=== PATIENT | male | born 1950 | race Caucasian/White ===

== ENCOUNTER 2017-06-13 15:44 | Inpatient (IN) | payer OTHER ==
--- NOTE | 2017-06-13 15:56 | EDPHY ---
H & P Time Seen by Provider: 06/13/17 15:53 HPI/ROS: CHIEF COMPLAINT: R/o urosepsis HISTORY OF PRESENT ILLNESS: This patient is a 66 y/o male with complex urologic history arriving at the request of Dr. Phillips for evaluation of urosepsis and admission for IV antibiotic treatment. Recent right ureteral stenting on 05/15/2017. This stent was removed on 05/17/2017. He developed severe sepsis after the stent was removed. Urinalysis revealed Pseudomonas, pansensitive. He was admitted to [facility] for five days and discharged home on meropenem by PICC line for 10 days and initially felt better. Saturday, he had finished his antibiotics and was cleared by Dr. Estrada, infectious disease specialist. He felt well over the weekend but Saturday, three days ago, he developed recurrent symptoms including worsening right flank pain, dysuria, diaphoresis and fever. Today, he is very chilled. He denies muscle aches but his hip and shoulder replacement surgical sites feel painful. Denies abdominal pain or back pain. No cough or cold symptoms, no nausea, vomiting, diarrhea. He did receive a flu shot Saturday, five days ago. He has taken Ibuprofen for fever reduction, last dose around 12: 00, four hours ago. Of note, the patient was initially placed on IV cefepime [ceftazidime?], but this was discontinued due to allergic reaction and rash. REVIEW OF SYSTEMS: A 10 point review of systems was performed and is negative with the exception of the elements mentioned in the history of present illness. - Medical/Surgical History PMH: 1. Hypertension 2. Hyperlipidemia 3. BPH 4. Kidney stones 5. Appendectomy 6. Lithotripsy 7. Umbilical hernia repair - Social History Additional Social History: at bedside. Lives in [place]. Works in construction. - Physical Exam Exam: General Appearance: Alert, appears uncomfortable Eyes: Pupils equal and round, no conjunctival pallor or injection ENT, Mouth: Mucous membranes moist Neck: Normal inspection Respiratory: Lungs are clear to auscultation Cardiovascular: Regular rate and rhythm Gastrointestinal: Abdomen is soft and non-tender Neurological: A&O, nonfocal, gait not assessed Skin: Warm and dry, no rash Extremities: Nontender, no pedal edema Psychiatric: Mood and affect normal Constitutional: Initial Vital Signs Temperature (C) 38.3 C 06/13/17 15:53 Heart Rate 98 06/13/17 15:53 Respiratory Rate 18 06/13/17 15:53 Blood Pressure 129/73 H 06/13/17 15:53 O2 Sat (%) 92 06/13/17 15:53 O2 Delivery Mode Room Air Allergies/Adverse Reactions: promethazine [From Phenergan] Allergy (Verified 06/13/17 15:52) Home Medications: Medication Instructions Recorded Atenolol [Tenormin 25 mg (*)] 25 mg PO DAILY 06/13/17 Citalopram [CeleXA] 20 mg PO DAILY 06/13/17 Herbals/Supplements -Info Only 1 ea PO DAILY 06/13/17 Lisinopril [Lisinopril] 20 mg PO DAILY 06/13/17 Hitchita-3 Fatty Acids [Fish Oil 1000 1,000 mg PO DAILY 06/13/17 mg (*)] Tamsulosin HCl [Flomax 0.4 MG (*)] 0.4 mg PO DAILY 06/13/17 Vitamin B Complex [B Complex] 1 each PO DAILY 06/13/17 traMADol [Ultram 50 mg (*)] 50 mg PO Q4 PRN 06/13/17 Medical Decision Making ED Course/Re-evaluation: This patient is a 66 y/o male with complex urologic history arriving at the request of Dr. Phillips for evaluation of urosepsis and admission for IV antibiotic treatment. The patient appears quite uncomfortable on exam, and continues to feel very chilled. Meets SIRS criteria because of heart rate and fever. Plan for labs including CBC, BMP, UA, urine cultures, and blood cultures. Administered 650mg PO Tylenol for fever reduction. UA positive for urinary tract infection. Lactate within normal limits. Does not meet severe sepsis guidelines. 17:[address] Phillips, infectious disease specialist. The patient will be admitted and receive IV meropenem. Plan to administer 1gm IV meropenem here in the emergency department. 17:46 Spoke with hospitalist service. Dr. Hermosillo accepts admission. 17:50 Patient's temperature now 39.4. Plan to administer 600mg PO Ibuprofen for fever reduction. Differential Diagnosis: Differential diagnosis includes pyelonephritis, cholecystitis, influenza, cellulitis, pneumonia, abscess, meningitis. - Data Points Laboratory Results: Laboratory Results 06/13/17 16:10 06/13/17 16:10 Microbiology Results: MICROBIOLOGY 06/13/17 16:58 Urine,Clean Catch Urine Culture - Preliminary Pseudomonas Species Medications Given: Acetaminophen (Tylenol) 650 mg PO Q4HRS PRN PRN Reason: Pain, Mild/Fever, Can Take PO Stop: 12/10/17 18:24 Last Admin: 06/13/17 23:05 Dose: 650 mg Atenolol (Tenormin) 25 mg PO DAILY JOSE MANUEL Stop: 12/11/17 08:59 Last Admin: 06/14/17 08:31 Dose: 25 mg Citalopram Hydrobromide (Celexa) 20 mg PO DAILY JOSE MANUEL Stop: 12/11/17 08:59 Last Admin: 06/14/17 08:31 Dose: 20 mg Enoxaparin Sodium (Lovenox) 40 mg SC DAILY JOSE MANUEL Stop: 12/11/17 08:59 Last Admin: 06/14/17 08:30 Dose: 40 mg Meropenem 1 gm/ Sodium (Chloride) 120 mls @ 120 mls/hr IV Q8H JOSE MANUEL PRN Reason: Protocol Stop: 07/14/17 01:59 [facility] Last Admin: 06/14/17 11:10 Dose: 120 mls Lisinopril (Zestril) 20 mg PO DAILY JOSE MANUEL Stop: 12/11/17 08:59 Last Admin: 06/14/17 08:30 Dose: 20 mg Visfe-9-Gjmm Ethyl Esters (Fish Oil) 1,000 mg PO DAILY JOSE MANUEL Stop: 12/11/17 08:59 Last Admin: 06/14/17 08:30 Dose: 1,000 mg Tamsulosin HCl (Flomax) 0.4 mg PO DAILY JOSE MANUEL Stop: 12/11/17 08:59 Last Admin: 06/14/17 08:31 Dose: 0.4 mg Tramadol HCl (Ultram) 50 mg PO Q4 PRN PRN Reason: Pain, Breakthrough Stop: 12/10/17 19:14 Last Admin: 06/14/17 05:09 Dose: 50 mg Vitamin B Complex (Vitamin B Complex) 1 ea PO DAILY JOSE MANUEL Stop: 12/11/17 08:59 Last Admin: 06/14/17 08:30 Dose: 1 ea Discontinued Medications Acetaminophen (Tylenol) 650 mg PO EDNOW ONE Stop: 06/13/17 16:18 Last Admin: 06/13/17 16:19 Dose: 650 mg Sodium Chloride (Ns) 1,000 mls @ 0 mls/hr IV ONCE ONE; Wide Open PRN Reason: Protocol Stop: 06/13/17 16:18 Last Admin: 06/13/17 16:20 Dose: 1,000 mls Meropenem 1 gm/ Sodium (Chloride) 120 mls @ 120 mls/hr IV EDNOW ONE PRN Reason: Protocol Stop: 06/13/17 18:35 Last Admin: 06/13/17 18:00 Dose: 120 mls Ibuprofen (Motrin) 600 mg PO EDNOW ONE Stop: 06/13/17 17:52 Last Admin: 06/13/17 17:59 Dose: 600 mg Departure - Departure Disposition: [facility] Inpatient Acute Clinical Impression: Urinary tract infection Qualifiers: Urinary tract infection type: acute cystitis Hematuria presence: without hematuria Qualified Code(s): N30.00 - Acute cystitis without hematuria Fever Qualifiers: Fever type: due to other condition Qualified Code(s): R50.81 - Fever presenting with conditions classified elsewhere Condition: Fair Report Scribed for: Migdalia Rees Report Scribed by: Vi Su Date of Report: 06/13/17 Time of Report: 15:55
[2017-06-13] MEDS ORDERED: ACETAMINOPHEN 325 MG TAB PO ONE (16:17)
[2017-06-13] MEDS ORDERED: NS 1,000 ML IV ONE (16:17)
[2017-06-13 16:30] LABS: % IMMATURE GRANULYOCYTES 0.6 % (0.0-1.1); ABSOLUTE IMMATURE GRANULOCYTES 0.07 10^3/uL (0.00-0.10); ADD DIFF? NO; ADD MORPH? NO; ADD SCAN? NO; ATYPICAL LYMPHOCYTE FLAG 10 (0-99); FRAGMENT RBC FLAG 0 (0-99); HEMATOCRIT 37.9 % (40.0-51.0); HEMOGLOBIN 12.7 g/dL (13.7-17.5); LEFT SHIFT FLG 0 (0-99); LIPEMIA HEMOLYSIS FLAG 80 (0-99); MEAN CELL HEMOGLOBIN 30.9 pg (27.9-34.1); MEAN CELL HEMOGLOBIN CONCENTR. 33.5 g/dL (32.4-36.7); MEAN CELL VOLUME 92.2 fL (81.5-99.8); MEAN PLATELET VOLUME 10.1 fL (8.7-11.7); PLATELET CLUMPS FLAG 20 (0-99); PLATELET COUNT 182 10^3/uL (150-400); RED BLOOD CELL COUNT 4.11 10^6/uL (4.40-6.38); RED CELL DISTRIBUTION WIDTH 12.8 % (11.5-15.2)
[2017-06-13 16:36] LABS: ANION GAP 12 mEq/L (8-16); CALCIUM 9.4 mg/dL (8.5-10.4); CARBON DIOXIDE 24 mEq/l (22-31); CHLORIDE 102 mEq/L (97-110); CREATININE 1.1 mg/dL (0.7-1.3); GLOMERULAR FILTRATION RATE > 60; GLUCOSE 115 mg/dL (70-100); POTASSIUM 3.7 mEq/L (3.5-5.2); SODIUM 138 mEq/L (134-144)
[2017-06-13 17:16] LABS: COLOR YELLOW; LEUKOCYTE ESTERASE,URINE 1+ (NEGATIVE); NITRITE,URINE NEGATIVE (NEGATIVE)
[2017-06-13 17:24] LABS: MUCUS TRACE /lpf (NONE-1+); RBC,URINE 25-50 /hpf (0-3); WBC,URINE 25-50 /hpf (0-3)
[2017-06-13] MEDS ORDERED: MEROPENEM 1 GM in NS 100 ML IV ONE (17:36)
[2017-06-13] MEDS ORDERED: IBUPROFEN 600 MG TAB PO ONE (17:51)
--- NOTE | 2017-06-13 18:06 | PDGENHP ---
History and Physical History and Physical: HISTORY AND PHYSICAL CC: Fever HISTORY: This patient comes to the ER from Dr. Phillips office with fever today. The story goes back to few weeks ago when he had a 9 mm kidney stone surgically removed by Dr. Dodd at the [facility] with a right ureteral stent placed. He apparently had an extreme amount of pain and the stent was removed somewhere around 3 and half weeks ago. Shortly thereafter the patient developed significant fevers and grew a Pseudomonas out of his urine culture. He was started on 1 antibiotic but had an allergic reaction to that. He then received 2 weeks of meropenem 3 times daily, finishing that antibiotic therapy at home 6 days ago. 3 days ago he started feeling poorly again and 2 days ago he saw Dr. Dodd with fevers. Apparently from a how the patient describes things he had urine cultures done again, as well as an ultrasound which the patient describes showed no evidence of stone or obstruction, and an abdominal x -ray which was unrevealing. Dr. Dodd, while waiting for cultures referred the patient to see Dr. Zachary Phillips today. It sounds like there was no outpatient antibiotic therapy prescribed in the past few days with these fevers. The patient saw Dr. Phillips in clinic today and Dr. Phillips brought the patient over to the emergency room for further evaluation and care. I am told but have not seen confirmation yet the urine culture from 2 days ago is growing a Pseudomonas again. The patient feels weak and tired, with occasional mild headache but there are no other specific symptoms besides fevers and sweats. He does not have abdominal back or flank pain and is passing urine. 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 I have reviewed the list and ordered appropriate medicines. PHYSICAL EXAMINATION: Vital Signs: Temperature 39.4degrees, but otherwise stable vital signs Examination: General: alert, oriented, good mentation, relaxed Skin: warm, quite diaphoretic, good color, no rash HEENT: normal Neck: no mass or jvd Resps: relaxed Lungs: clear breath sounds Heart: regular, no murmur Abdomen: soft, nondistended, nontender, +BS, no mass Upper Extremities: normal Lower Extremities: no edema, warm No Bleeding or bruising Neurologic: normal speech/language, normal business operations director, no focal weakness IV site: looks normal LABORATORY DATA: White blood cell count 68211 with predominance of neutrophils, otherwise stable CBC and chemistry RADIOLOGY STUDIES: Again as per the patient he had renal ultrasound and abdominal x-ray [address] Dodd soft with with no evidence of stone or obstruction other than some known renal stones ASSESSMENT: -acute complicated urinary tract infection with fever, after recent stent placement and removal with removal of stone, and recent Pseudomonas infection, apparently growing now the same Pseudomonas bacteria and culture 6 days after completing 2 weeks of meropenem. This would raise concern for possible anatomic abnormality causing the recurrent fevers and infection and will need to get in touch with Dr. Dodd when he is available to review the specifics of what actually was done in the clinic. -history of recurrent kidney stones PLANS: Inpatient admission hospital as patient clearly will need more than 48 hours of inpatient management of this severe febrile illness IV meropenem has been started and will continue that at this time IV hydration Dr. Zachary Phillips will see the patient with this I have reviewed the patient's case in detail with Dr. Dr. Migdalia Rees
[2017-06-13] MEDS ORDERED: ZOLPIDEM TARTRATE 5 MG TAB PO PRN (18:25)
[2017-06-13] MEDS ORDERED: ONDANSETRON 4 MG/2 ML VIAL IVP PRN (18:25)
[2017-06-13] MEDS: ACETAMINOPHEN 325 MG TAB PO PRN (23:05)
[2017-06-14] MEDS: MEROPENEM 1 GM in NS 100 ML IV SCH ×3 (01:51→18:00)
--- NOTE | 2017-06-14 04:52 | PDMN ---
Medical Necessity Medical necessity: Patient meets INPT criteria per [facility] Urologic Disease GRG (hx of recent Pseudomonas UTI s/p kidney stone surgical removal treated w/meropenem ; recurrent fever x 2-3 days; T to 39.4, sat 90% on RA; poss structural anomaly ; anticipated LOS > 2 midnights for ongoing IV antibiotics and hydration, ID consult.)
[2017-06-14] MEDS: traMADol 50 MG TAB PO PRN ×2 (05:09→21:22)
[2017-06-14 05:17] LABS: % IMMATURE GRANULYOCYTES 0.5 % (0.0-1.1); ABSOLUTE IMMATURE GRANULOCYTES 0.07 10^3/uL (0.00-0.10); ADD DIFF? NO; ADD MORPH? NO; ADD SCAN? NO; ATYPICAL LYMPHOCYTE FLAG 0 (0-99); FRAGMENT RBC FLAG 0 (0-99); HEMATOCRIT 33.6 % (40.0-51.0); HEMOGLOBIN 11.1 g/dL (13.7-17.5); LEFT SHIFT FLG 10 (0-99); LIPEMIA HEMOLYSIS FLAG 80 (0-99); MEAN CELL HEMOGLOBIN 30.7 pg (27.9-34.1); MEAN CELL VOLUME 92.8 fL (81.5-99.8); MEAN PLATELET VOLUME 10.1 fL (8.7-11.7); PLATELET CLUMPS FLAG 20 (0-99); PLATELET COUNT 142 10^3/uL (150-400); RED BLOOD CELL COUNT 3.62 10^6/uL (4.40-6.38); RED CELL DISTRIBUTION WIDTH 12.7 % (11.5-15.2)
--- NOTE | 2017-06-14 08:10 | HOSPPROG ---
Hospitalist Progress Note Assessment/Plan: #SIRs: due to UTI. Hemodynamically stable #Recurrent Pseudomonas UTI: recent kidney stone extraction and stent placement/ removal here. Appreciated Dr. Phillips's input. IV meropenem. Bld cx NGTD #HTN: cont home meds #h/o kidney stone: s/p ureteral stent and removal #HTN: #HTN: resume JASON-I #Leukocytosis: UTI, Bld cx pending #Diet: regular #DVT ppx: Lovenox #Disp: warrant inpt admission with SIRs, requiring IVFs, abx Subjective: feels very fatigued, feverish Objective: Vital Signs Temp Pulse Resp BP Pulse Ox 37 C 89 94 H 147/85 H 93 06/14/17 04:35 06/14/17 04:35 06/14/17 04:35 06/14/17 04:35 06/14/17 01:22 Laboratory Results 06/14/17 04:32 06/13/17 06/14/17 06/15/17 05:59 05:59 05:59 Intake Total 900 Output Total 450 Balance 450 - Physical Exam Constitutional: other (fatigued) Ears, Nose, Mouth, Throat: moist mucous membranes Cardiovascular: regular rate and rhythym, no murmur, rub, or gallop Respiratory: no respiratory distress, no rales or rhonchi Gastrointestinal: normoactive bowel sounds, soft, non-tender abdomen Genitourinary: No no bladder fullness, No no bladder tenderness Skin: warm Musculoskeletal: full muscle strength Neurologic: AAOx3, CN II-XII Intact Psychiatric: interacting appropriately ICD10 Worksheet Patient Problems: Problems Problem Status Onset Fever Acute Urinary tract infection Acute
[2017-06-14] MEDS: LISINOPRIL 20 MG TAB PO SCH (08:30)
[2017-06-14] MEDS: VITAMIN B COMPLEX 1 EA CAP/TAB PO SCH (08:30)
[2017-06-14] MEDS: OMEGA-3 FATTY ACIDS 1,000 MG CAP PO SCH (08:30)
[2017-06-14] MEDS: ENOXAPARIN 40 MG/0.4 ML SYR SC SCH (08:30)
[2017-06-14] MEDS: CITALOPRAM 20 MG TAB PO SCH (08:31)
[2017-06-14] MEDS: TAMSULOSIN HCL 0.4 MG CAP PO SCH (08:31)
[2017-06-14] MEDS: ATENOLOL 25 MG TAB PO SCH (08:31)
--- NOTE | 2017-06-14 10:23 | ASMTCMCOM ---
CM Note CM Note Notes: Pt is currently on IV ABX for a complicated UTI. It is unclear if pt will need IV ABX at DC. C/M will follow for DC needs. Date Signed: 06/14/2017 10:23 AM Electronically Signed By:Marni Cartagena LCSW
--- NOTE | 2017-06-14 10:59 | PCMIDPN ---
Assessment/Plan: Assessment: Complicated UTI/sepsis -recent completion of 14 days of treatment with IV meropenem for pseudomonal aeruginosa caused urinary tract infection bacteremia. Concern if Pseudomonas is again isolated especially from blood that this could be indicative of an nidus of infection. At this point will continue meropenem and follow culture results. Patient appears to be clinically improved today. Plan: 1. Continue meropenem empiric therapy. 2. Follow temp curve as well as culture results. 3. Contact Dr. Dodd regarding blood and urine cultures taken on Saturday as an outpatient. 06/14/17 15:19 Subjective: Patient is resting in his hospital bed. Family is at bedside. He had a temperature maximum of 39.4 degrees last night. He states he is feeling better today. No rash or lesion. Objective: Meropenem # 1 Vital Signs Temp Pulse Resp BP Pulse Ox 37.4 C 88 27 H 116/56 L 92 06/14/17 08:27 06/14/17 08:31 06/14/17 08:27 06/14/17 08:31 06/14/17 08:27 Laboratory Results 06/14/17 04:32 06/13/17 06/14/17 06/15/17 05:59 05:59 05:59 Intake Total 900 Output Total 450 200 Balance 450 -200 - Physical Exam General Appearance: WD/WN, alert, no apparent distress, toxic (Mildly) Respiratory: lungs clear, normal breath sounds, No respiratory distress Cardiac/Chest: regular rate, rhythm, No tachycardia Skin: normal color, warm/dry, No rash Neuro/Psych: alert, normal mood/affect, oriented x 3 ICD10 Worksheet Patient Problems: Problems Problem Status Onset Fever Acute Urinary tract infection Acute
[2017-06-14] MEDS: NS 1,000 ML IV SCH (15:03)
--- NOTE | 2017-06-14 18:03 | SOAPPROG ---
SOAP Progress Note Assessment/Plan: Assessment: 1. Recurrent complicated febrile Pseudomonal UTI. 2. Bilateral small-volume nonobstructive nephrolithiasis. Plan: Please see dictated consult note (# [id number]). Objective: Vital Signs Temp Pulse Resp BP Pulse Ox 37.1 C 83 18 135/76 H 91 L 06/14/17 17:15 06/14/17 15:50 06/14/17 15:50 06/14/17 15:50 06/14/17 15:50 Laboratory Results 06/14/17 04:32 06/13/17 06/14/17 06/15/17 05:59 05:59 05:59 Intake Total 900 Output Total 450 200 Balance 450 -200 ICD10 Worksheet Patient Problems: Problems Problem Status Onset Urinary tract infection Acute Fever Acute
--- NOTE | 2017-06-14 19:07 | GCON ---
[f rep st] CONSULTATION DATE OF CONSULTATION: 06/14/2017 REFERRING PHYSICIAN: Hospitalist Service REASON FOR CONSULTATION: Recurrent complicated urinary tract infection. HISTORY: This is a 66-year-old gentleman who has been followed by Dr. Dodd in my practice for nephroureterolithiasis. The patient initially was diagnosed with a sizable distal right ureteral calculus for which he underwent unremarkable ureteroscopy with laser lithotripsy and stent placement on 2016. The patient then had his ureteral stent removed in the office unremarkably on 05/17/2017. He subsequently developed pseudomonal sepsis for which he was admitted to [facility] and ultimately treated with 2 weeks' of IV meropenem. This was completed approximately 1 week ago. The patient did well for the time while on antibiotics and then for about 2 days after that. However, thereafter he started experiencing recurrent malaise, chills, and fevers up to 100 degrees. A urine sample at Dr. Dodd's office on 06/11 was nitrite-positive. Urine culture was performed at that time, along with renal sonography. When Dr. Dodd was unable to get the patient in to see his initial infectious disease specialist, Dr. Latrell Estrada, the patient was referred to Dr. Phillips who saw the patient yesterday. The patient was then admitted from Dr. Phillips's office yesterday and therapy initiated. The patient states he feels much better today but continues to feel some weakness and generalized fatigue. He also states that his urinary stream was much improved today. He denies any dysuria or gross hematuria prior to admission. There was some very mild left flank discomfort when he saw Dr. Dodd, but this has since resolved. The patient denies any prior history of urinary tract infections. PAST MEDICAL HISTORY: Notable for hypertension, gout, recent nephrolithiasis. PAST SURGICAL HISTORY: Includes appendectomy, umbilical herniorrhaphy, recent right-sided ureteroscopy. ADMISSION MEDICATIONS: Include tramadol 50 mg p.r.n., lisinopril 20 mg daily, Celexa 20 mg daily, Tenormin [address] Dodd recently prescribed Flomax but the patient had not yet started it prior to this admission. MEDICAL ALLERGIES: Phenergan. FAMILY HISTORY: Not contributory. SOCIAL HISTORY: The patient and his live in the [facility]. He has a prior smoking history before age 63, and denies current alcohol use. REVIEW OF SYSTEMS: Unremarkable, other than mentioned above in the HPI and Past Medical History. PHYSICAL EXAM: GENERAL: Well-developed, well-nourished white male lying supine in bed in no acute distress presently. VITAL SIGNS: Most recent temperature 37.1 Celsius, which compares to a maximum of 39.4 at 5:37 p.m. yesterday. Blood pressure 147/85, pulse 89, oxygen saturation is 94% on room air. HEENT: Normocephalic, atraumatic. NECK: Supple. HEART: Regular rate. CHEST: Unlabored respiratory pattern. ABDOMEN: Scaphoid and soft. EXTREMITIES: Warm without cyanosis, clubbing, or significant edema. NEUROLOGIC : He is alert and oriented. He answers all questions appropriately with normal mood and affect. LABORATORY: CBC today notable for white blood cell count of 13,000, compared to 10,800 yesterday. Chemistry panel yesterday was normal with a creatinine 1.1. Urinalysis from yesterday revealed 25-50 white blood cells, 25-50 red blood cells per high-power field. No mention of bacteria. A urine culture from yesterday reveals greater than 100,000 colonies/mL of pseudomonas species, final identification is still pending. Blood cultures negative. Blood cultures from yesterday are no growth to date. According to review of office records, a urine culture was collected on 06/11 and sent to [facility]. The initial results revealed greater than 100,000 colonies/cc of gram-negative rods. RADIOGRAPHIC STUDIES: 06/11/2017 renal sonography from [facility]: By report, no evidence of hydronephrosis. 04/18/[address] scan (performed through [facility]) : Notable for an approximately 8 mm right ureterovesical junction calculus with minimal right hydronephrosis. There were also 5 calcifications in the left kidney, the largest being only 3 mm in diameter. There were also 4 nonobstructing calculi in the right kidney, largest measuring 6 mm in the lower pole. IMPRESSION: 1. Recurrent complicated pseudomonal urinary tract infection with fevers. The patient has improved since admission yesterday and after recommencing of meropenem. 2. History of distal right ureterolithiasis, status post successful ureteroscopy and calculus management at [facility] with Dr. Dodd on 02/2017. 3. Bilateral nonobstructing small-volume nephrolithiasis. 4. Benign prostatic hyperplasia: Mild obstructive urinary symptoms without evidence of significant retention. The patient does not have history of significant retention, and was found to have a postvoid residual of only 43 cc in the office on 06/11. RECOMMENDATIONS: 1. Continue complicated urinary tract infection treatment as per Infectious Disease. 2. If he continues to respond favorably without any clinical regression, then I do not believe any further imaging is necessary. However, I would have a low threshold to perform either a noncontrast CT or CT urogram to rule out recurrent obstruction. Additionally, if the patient is noted to be bacteremic, then I would recommend a repeat CT scan thereafter. Thank you for this consultation. We will be available as needed. /[id number]/MODL MTDD
[2017-06-14] MEDS: ACETAMINOPHEN 325 MG TAB PO PRN (21:27)
[2017-06-15] MEDS: traMADol 50 MG TAB PO PRN ×2 (02:08→08:35)
[2017-06-15] MEDS: MEROPENEM 1 GM in NS 100 ML IV SCH ×2 (02:08→11:03)
[2017-06-15] MEDS: NS 1,000 ML IV SCH (04:47)
[2017-06-15 05:15] LABS: HEMATOCRIT 31.4 % (40.0-51.0); HEMOGLOBIN 10.6 g/dL (13.7-17.5); MEAN CELL HEMOGLOBIN 30.6 pg (27.9-34.1); MEAN CELL HEMOGLOBIN CONCENTR. 33.8 g/dL (32.4-36.7); MEAN CELL VOLUME 90.8 fL (81.5-99.8); RED BLOOD CELL COUNT 3.46 10^6/uL (4.40-6.38); RED CELL DISTRIBUTION WIDTH 12.7 % (11.5-15.2)
[2017-06-15 05:30] LABS: ANION GAP 6 mEq/L (8-16); CALCIUM 8.8 mg/dL (8.5-10.4); CARBON DIOXIDE 26 mEq/l (22-31); CHLORIDE 108 mEq/L (97-110); GLOMERULAR FILTRATION RATE > 60; GLUCOSE 90 mg/dL (70-100); POTASSIUM 3.4 mEq/L (3.5-5.2); SODIUM 140 mEq/L (134-144)
[2017-06-15] MEDS: ATENOLOL 25 MG TAB PO SCH (08:23)
[2017-06-15] MEDS: LISINOPRIL 20 MG TAB PO SCH (08:23)
[2017-06-15] MEDS: VITAMIN B COMPLEX 1 EA CAP/TAB PO SCH (08:23)
[2017-06-15] MEDS: TAMSULOSIN HCL 0.4 MG CAP PO SCH (08:23)
[2017-06-15] MEDS: CITALOPRAM 20 MG TAB PO SCH (08:23)
[2017-06-15] MEDS: OMEGA-3 FATTY ACIDS 1,000 MG CAP PO SCH (08:23)
[2017-06-15 08:27] VITALS: BP 146/87; PULSE 87; RESP 16; O2SAT 94
[2017-06-15] MEDS: ACETAMINOPHEN 325 MG TAB PO PRN (08:36)
[2017-06-15] MEDS: ENOXAPARIN 40 MG/0.4 ML SYR SC SCH (08:37)
[2017-06-15] MEDS ORDERED: POTASSIUM CL 20 MEQ TAB PO ONE ×2 (10:33→16:15)
--- NOTE | 2017-06-15 11:10 | PCMIDPN ---
Assessment/Plan: Assessment: Complicated UTI/sepsis -clinically much improved. No further fevers or chills. Patient had an abdominal pelvic CT scan with contrast as well as an echocardiogram done today. Neither study showed evidence of focus of infection. Patient is urinary isolate with Pseudomonas remains pansensitive. We will be able to change him to oral Levaquin therapy 750 mg daily for total of 10 days and discharge home. Follow up in clinic late this week. Plan: 1. Change IV meropenem to oral Levaquin 750 mg daily. Total of 10 days duration of total antibiotic treatment. 2. Discharge home with follow up in clinic in 1 week. 3. Give patient CD with CT scan for follow-up with urologist. Subjective: Patient is resting comfortably in his hospital bed. Feels much better. No fevers or chills. No abdominal flank or pelvic pain. Objective: Meropenem #2 Vital Signs Temp Pulse Resp BP Pulse Ox 36.5 C 87 16 146/87 H 94 06/15/17 08:24 06/15/17 08:24 06/15/17 08:24 06/15/17 08:24 06/15/17 08:24 Laboratory Results 06/15/17 04:48 06/15/17 04:48 06/14/17 06/15/17 06/16/17 05:59 05:59 05:59 Intake Total 900 1950 Output Total 450 950 Balance 450 1000 - Physical Exam General Appearance: WD/WN, alert, no apparent distress, non-toxic Respiratory: lungs clear, normal breath sounds, No respiratory distress Cardiac/Chest: regular rate, rhythm, No tachycardia Abdomen: non-tender, soft Skin: normal color, warm/dry, No rash Neuro/Psych: alert, normal mood/affect, oriented x 3 ICD10 Worksheet Patient Problems: Problems Problem Status Onset Fever Acute Urinary tract infection Acute
[2017-06-15] MEDS ORDERED: IOPAMIDOL (ISOVUE-300) 100 ML BTL ONE (12:00)
--- NOTE | 2017-06-15 12:20 | ASMTCMCOM ---
CM Note CM Note Notes: Pt will be able to DC on oral ABX per Dr Phillips. Anticipate pt will not have any oteh DC needs. C/M available if needs change. Date Signed: 06/15/2017 12:19 PM Electronically Signed By:Marni Cartagena LCSW
--- NOTE | 2017-06-15 12:47 | HOSPPROG ---
Hospitalist Progress Note Assessment/Plan: #SIRs: resolved. Due to complicated UTI. Hemodynamically stable #Recurrent Pseudomonas UTI: recent kidney stone extraction and stent placement/ removal here. Appreciated Dr. Phillips's input. -TTE, CT scan today. IV meropenem. Bld cx NGTD. Can likely transition to PO if remains clinically stable #HTN: cont home meds #h/o kidney stone: s/p ureteral stent and removal. Followed by Dr. Dodd #HTN: #HTN: resume JASON-I #Leukocytosis: UTI, Bld cx pending #Diet: regular #DVT ppx: Lovenox #Disp: warrant inpt admission requiring IVFs, abx Subjective: feeling much better today. No f/c. No flank pain Objective: Vital Signs Temp Pulse Resp BP Pulse Ox 36.5 C 87 16 146/87 H 94 06/15/17 08:24 06/15/17 08:24 06/15/17 08:24 06/15/17 08:24 06/15/17 08:24 Laboratory Results 06/15/17 04:48 06/15/17 04:48 06/14/17 06/15/17 06/16/17 05:59 05:59 05:59 Intake Total 900 1950 Output Total 450 950 Balance 450 1000 ICD10 Worksheet Patient Problems: Problems Problem Status Onset Fever Acute Urinary tract infection Acute
--- NOTE | 2017-06-15 12:58 | ECHO ---
[email or web address] [address] [address] Main: [phone] Fax: Transthoracic Echocardiogram Name: MARVIN LINARES MR#: [id number] Study Date: 06/15/2017 Study Time: 12:03 PM Date of : 1950 Age: 66 year(s) Height: 170.2 cm (67 in.) Weight: 88 kg (194 lb.) BSA: 2 m2 Gender: Male Examination: Echo Indication: Image Quality: Contrast: Requested by: Zachary Phillips BP: 120 mmHg/82 mmHg Heart Rate: Rhythm: Normal sinus rhythm Indication: Procedure Staff Merchandise Worker: Latrell Ramírez Reading Physician: Dhruv Hernandez Requesting Provider: Conclusions: Mild concentric LV hypertrophy. EF is 64 %. Diastolic dysfunction is present. . Mild aortic cusp calcification is noted. Moderate aortic valve regurgitation is present. Cannot rule out aortic valve vegetation. Consider ANUJ if clinically indicated. Measurements: Chambers Valvular Assessment AV/MV Valvular Assessment TV/PV Normal Normal Normal Name Value Range Name Value Range Name Value Range Ao Yue (MM): 3.1 cm (2.2 cm-3.7 AV Vmax: 1.57 m/s (1 m/s-1.7 PV Vmax: 1.40 m/s (0.6 m/s-0.9 cm) m/s) m/s) IVSd (2D): 0.9 cm (0.6 cm-1.1 AV maxP mmHg ( - ) PV PGmax: 8 mmHg ( - ) cm) AV meanP mmHg ( - ) LVDd (2D): 5.0 cm (4.2 cm-5.9 LVOT Vmax: 1.05 m/s (0.7 m/s-1.1 cm) m/s) LVDs (2D): 3.2 cm (2.1 cm-4 TAE (Vmax): 2.3 cm2 ( - ) cm) TAE (VTI): 2.7 cm ( - ) LVPWd (2D): 1.0 cm (0.6 cm-1 AR (PHT): 700 ms ( - ) cm) MV E Vmax: 0.91 m/s ( - ) LVOTd 2.1 cm 2.1 cm mm MV A Vmax: 0.80 m/s ( - ) LVEF (2D): 64 (>=54 %) MV E/A: 1.14 ( - ) MV maxP mmHg ( - ) MV meanP mmHg ( - ) MVA (Vmax): 3.0 m/s ( - ) Continued Measurements: Chambers Valvular Assessment AV/MV Patient: MARVIN LINARES Study Date: 06/15/2017 Page 1 of 2 12:03 PM Name Value Name Value LADs Lon.8 cm MV E/E' Lateral: 10.50 LA Area: 21.9 cm2 MV VTI: 29.40 cm AR Vmax: 5.35 cm/s AR ERO: 0.2 cm2 AR PISA radius: 0.7 cm AR Reg. Volume: 59.0 ml AR Reg. Fraction: 67 % AR VTI: 293.0 cm Findings: Left Ventricle: Normal size left ventricle. Mild concentric LV hypertrophy. Normal global systolic LV function. EF is 64 %. No regional wall motion abnormality. Diastolic dysfunction is present. . Right Ventricle: Normal size right ventricle. Left Atrium: The left atrium is normal in size. Right Atrium: The right atrium is normal in size. Mitral Valve: The mitral valve is normal in appearance and function. Aortic Valve: Mild aortic cusp calcification is noted. The aortic valve is tri-leaflet. Moderate aortic valve regurgitation is present. Cannot rule out aortic valve vegetation. Tricuspid Valve: The tricuspid valve is normal in appearance and function. Trivial tricuspid valve regurgitation. Pulmonic Valve: The pulmonic valve is normal in appearance and function. Aorta: The aorta is normal. Pericardium: No pericardial effusion. (No Signature Object) Patient: MARVIN LINARES Study Date: 06/15/2017 Page 2 of 2 12:03 PM D:_[id number]
[2017-06-15 15:13] VITALS: TEMP 98.1
--- NOTE | 2017-06-15 16:47 | ASDISCHSUM ---
Discharge Information Plan Status:Home with No Needs Medically Cleared to Leave: Discharge Date:06/15/2017 04:19 PM CM D/C Disposition:Home, Routine, Self-Care ADT D/C Disposition:Home, Routine, Self-Care Projected Discharge Date:06/15/2017 12:00 AM Transportation at D/C: Discharge Delay Reason: Follow-Up Date:06/15/2017 12:00 AM Discharge Slot: Final Diagnosis: Placement Information Patient Contact Information Contact Name:ROSA ELENA Relationship: Address:[address] Work Phone: City:[place] Alternate Phone: [facility]/Zip Code:[place] [address] Email: Financial Information Financial Class:Medicare Advantage Plans Primary Plan Desc:[facility] ADVANTAGE PLANS Primary Plan Number:[id number] Secondary Plan Desc: Secondary Plan Number: Assessment Information [facility] CM Progress Note CM Note CM Note Notes: Pt is currently on IV ABX for a complicated UTI. It is unclear if pt will need IV ABX at DC. C/M will follow for DC needs. Date Signed: 06/14/2017 10:23 AM Electronically Signed By:Marni Cartagena LCSW [facility] CM Progress Note CM Note CM Note Notes: Pt will be able to DC on oral ABX per Dr Phillips. Anticipate pt will not have any oteh DC needs. C/M available if needs change. Date Signed: 06/15/2017 12:19 PM Electronically Signed By:Marni Cartagena LCSW Intervention Information
--- NOTE | 2017-06-15 18:01 | GDS ---
[f rep st] DISCHARGE SUMMARY DISCHARGE DIAGNOSES: 1. Complicated Pseudomonas urinary tract infection. 2. Kidney stones. 3. Hypertension. 4. Leukocytosis. 5. Systemic inflammatory response syndrome. HISTORY OF PRESENT ILLNESS: A pleasant 66-year-old male with history of kidney stones, who had a stone surgically removed by Dr. Dodd at [facility] several weeks ago and had a right ureteral stent placed. He had an extreme amount of pain with the stent. This was removed 3-1/2 weeks ago. Shortly thereafter, he developed fevers and grew Pseudomonas out of his culture. He was started on an antibiotic and had an allergic reaction. He ultimately received 2 weeks of meropenem, finishing the antibiotic 6 days ago. Three days ago, he started feeling poorly again and re-presented to Dr. Dodd. He was referred to Dr. Phillips who brought him to the emergency room for further evaluation. HOSPITAL COURSE BY PROBLEM: 1. Complicated Pseudomonas urinary tract infection: No nidus identified here. CT abdomen and pelvis negative for abscess. He was treated with IV meropenem here. Will transition to Levaquin 750 mg for a total of 10 days. Follow up with Dr. Phillips in 1 week. He needs to follow up with Dr. Dodd to consider further treatment of stones as these may be the underlying etiology. 2. SIRS: This resolved secondary to UTI. Plan as above. 3. Hypertension: Resume home medications. 4. Leukocytosis: Resolved with IV antibiotics. Blood cultures remain negative. 5. Kidney stones. Again, follow up with Dr. Dodd. DISPOSITION: Patient is stable for discharge home with . FOLLOWUP: 1. Dr. Phillips. 2. Dr. Dodd with urology. NEW MEDICATIONS: Levaquin 750 mg. /[id number]/MODL MTDD
== END 2017-06-15 16:19 | disposition home or self-care (01) | DRG 872 ==
LOC: F1N 18:31
PROVIDERS: ADMIT Internal Medicine; ATTEND Internal Medicine
DX: A41.89 Other specified sepsis (principal); N39.0 Urinary tract infection, site not specified; B96.5 Pseudomonas (aeruginosa) (mallei) (pseudomallei) as the cause of diseases classified elsewhere; I10 Essential (primary) hypertension; N20.0 Calculus of kidney; N40.0 Benign prostatic hyperplasia without lower urinary tract symptoms; E78.5 Hyperlipidemia, unspecified
CPT/HCPCS: 96374; J1650; J2185; Q9967

== ENCOUNTER → 2017-10-25 | Outpatient (CLI) | payer OTHER | LOC: BRMIMAGING 14:16 | PROVIDERS: ATTEND Internal Medicine Rheumatology | DX: M19.041 Primary osteoarthritis, right hand (principal); M19.042 Primary osteoarthritis, left hand | CPT/HCPCS: 73120-PO ==

== ENCOUNTER → 2018-07-15 | Outpatient (CLI) | payer OTHER | LOC: SBRMNEURO 20:00 | PROVIDERS: ATTEND Internal Medicine Pulmonary Disease | DX: G47.33 Obstructive sleep apnea (adult) (pediatric) (principal); G47.36 Sleep related hypoventilation in conditions classified elsewhere ==